=== PATIENT | male | born 1995 | race Caucasian/White ===

== ENCOUNTER 2017-01-06 16:09 | Emergency (ER) | payer BC ==
[2017-01-06 17:00] VITALS: BP 139/90
[2017-01-06] MEDS ORDERED: Benzoin Compound STICK TOPICAL ONE (17:41)
--- NOTE | 2017-01-06 17:58 | UC ---
HPI Wound/Suture Re-check - HPI Summary HPI Summary: THREE SUTURES RIGHT HAND PLACED TEN DAYS AGO. NO FEVER NO DISCHARGE. - History Of Current Complaint Chief Complaint: [employer] Stated Complaint: SUTURE REMOVAL Time Seen by Provider: 01/06/17 17:36 Hx Obtained From: Patient Onset/Duration: Gradual Onset, Lasting Weeks, Still Present Severity: Mild - Allergies/Home Medications Allergies/Adverse Reactions: Allergies Allergy/AdvReac Type Severity Reaction Status Date / Time No Known Allergies Allergy Verified 01/06/17 17:00 Home Medications: Home Medications Amphetamine MIXED SALT TAB* [Adderall TAB*] 20 mg PO DAILY 01/06/17 [History Confirmed 01/06/17] PMH/Surg Hx/FS Hx/Imm Hx Previously Healthy: Yes - Surgical History Surgical History: None - Family History Known Family History: Negative: Blood Disorder - Social History Occupation: Employed Full-time, Student Lives: With Family Alcohol Use: Occasionally Substance Use Type: None Smoking Status (MU): Never Smoked Tobacco Review of Systems Constitutional: Negative Skin: Other - LACERATION RIGHT HAND Eyes: Negative ENT: Negative Respiratory: Negative Cardiovascular: Negative Gastrointestinal: Negative Genitourinary: Negative Motor: Negative Neurovascular: Negative Musculoskeletal: Negative Neurological: Negative Psychological: Negative Is Patient Immunocompromised?: No All Other Systems Reviewed And Are Negative: Yes Physical Exam Triage Information Reviewed: Yes Appearance: Well-Appearing, No Pain Distress, Well-Nourished Vital Signs: Initial Vital Signs Temp 97.6 F 01/06/17 16:57 Pulse 81 01/06/17 16:57 Resp 14 01/06/17 16:57 BP 139/90 01/06/17 16:57 Pulse Ox 99 01/06/17 16:57 Vital Signs Reviewed: Yes Eye Exam: Normal ENT Exam: Normal ENT: Positive: Normal ENT inspection, TMs normal Dental Exam: Normal Neck exam: Normal Neck: Positive: Supple, Nontender Respiratory Exam: Normal Respiratory: Positive: Chest non-tender, Lungs clear, Normal breath sounds, No respiratory distress Cardiovascular Exam: Normal Cardiovascular: Positive: RRR, No Murmur Abdominal Exam: Normal Musculoskeletal Exam: Normal Neurological Exam: Normal Psychological Exam: Normal Skin: Positive: Other - LACERATION RIGHT HAND REPAIRED WITH THREE 4-0 PROLENE SUTURES, HEALING WOUND. SUTURES REMOVED BY TODD. STERISTRIPS APPLIED TO AFFECTED AREA Procedures - Procedure Summary Procedure Summary: LACERATION RIGHT HAND REPAIRED WITH THREE 4-0 PROLENE SUTURES, HEALING WOUND. SUTURES REMOVED BY TODD. STERISTRIPS APPLIED TO AFFECTED AREA Course/Dx - Differential Dx - Laceration/Wound Differential Diagnoses: Suture Removal Provider Diagnoses: SUTURE REMOVAL RIGHT HAND Discharge - Discharge Plan Condition: Stable Disposition: HOME Patient Education Materials: Stitches Removal (ED), Steristrips (ED) Referrals: Non Staff,Doctor [Primary Care Provider] - [facility] [Outside]
== END 2017-01-06 17:59 | disposition home or self-care (01) ==
LOC: UCCORT 16:09
DX: Z48.02 Encounter for removal of sutures (principal)
CPT/HCPCS: 99201; G0463